=== PATIENT | male | born 1975 ===

== ENCOUNTER 2023-07-31 11:49 | Emergency (ER) | payer OTHER, SELFPAY ==
[2023-07-31 11:54] VITALS: BP 145/90; PULSE 78; RESP 16; O2SAT 96; BMI 28.2
[2023-07-31] MEDS: ONDANSETRON PF 4 MG/2 ML VIAL IV (12:13)
[2023-07-31] MEDS: MORPHINE SULFATE 4 MG/ML VIAL IV (12:13)
--- NOTE | 2023-07-31 12:16 | XR_ITS ---
The [address] [address] Patient Name: ALEJANDRO GREENFIELD MRN: [id number] date: 1975 Sex: M Assigned Patient Location: ER Current Patient Location: ER Accession/Order Number: [id number] Exam Date: 07/31/2023 12:20 Report Date: 07/31/2023 12:51 At the request of: DUSTIN PARISH Procedure: XR chest 1V EXAM: XR chest 1V HISTORY: Right lateral lower rib pain, no injury COMPARISON: None. TECHNIQUE: AP view of the chest. FINDINGS: The cardiomediastinal silhouette is normal. The lungs are clear. There is no pneumothorax. No pleural effusion is noted. The osseous structures are intact. XR/XR chest 1V IMPRESSION: No acute cardiopulmonary process. Electronically authenticated by: LAMAR SINGH Date: 07/31/2023 12:51
--- NOTE | 2023-07-31 12:18 | ED_ITS ---
HPI - General Adult General Chief complaint: Abdominal Pain Stated complaint: ABDOMINAL AND LOWER BACK PAIN Time Seen by Provider: 07/31/23 12:16 Source: patient Mode of arrival: walk-in Limitations: no limitations History of Present Illness HPI narrative: 47-year-old male presents for pain in his right anterior lateral rib region that has had for 4 days. He did not fall and had no direct trauma but he was lifting a heavy item before it started. He has a history of kidney stones but does not feel like a kidney stone and he has had a cholecystectomy. No fever or cough or complaints of shortness of breath. No dysuria or hematuria. He is also worried about a kidney infection. Related Data Previous Rx's Medication Instructions Recorded cyclobenzaprine 10 mg tablet 10 mg PO TID PRN muscle spasm #20 07/31/23 tabs ibuprofen 800 mg tablet 800 mg PO Q8H PRN pain #20 tabs 07/31/23 Allergies Allergy/AdvReac Type Severity Reaction Status Date / Time No Known Drug Allergies Allergy Verified 07/31/23 11:59 Review of Systems ROS Narrative A ten point review of systems is negative except as noted above. PFSH PFSH Social History Smoking status: Heavy tobacco smoker Exam Narrative Exam Narrative: Nurses note and vital signs reviewed and patient is not hypoxic. General: The patient appears well and in no apparent distress. Patient is resting comfortably on cart. Skin: Warm, dry, no pallor noted. There is no rash noted. Head: Normocephalic, atraumatic Eye: Normal conjunctiva, no drainage Ears, Nose, Mouth, and Throat: oral mucosa is moist. Nares patent. Cardiovascular: Regular Rate and Rhythm Respiratory: Patient is in no distress, no accessory muscle use, lungs are clear to auscultation, no wheezing, rales or rhonchi Back: non-tender, no CVA tenderness bilaterally to percussion. No bruise or rash in either flank area. GI: Minimal tenderness to palpation in the right lateral area below the ribs, no masses appreciated. No rebound, guarding, or rigidity noted. Musculoskeletal: The patient has no evidence of calf tenderness, no pitting edema, symmetrical pulses noted bilaterally Neurological: A&O, normal speech Psychiatric: Cooperative Constitutional Vital Signs, click to edit/add: Last Vital Signs Pulse 78 07/31/23 11:54 Resp 16 07/31/23 11:54 BP 145/90 H 07/31/23 11:54 Pulse Ox 96 07/31/23 11:54 O2 Del Method Room Air 07/31/23 11:54 Course Vital Signs Vital signs: Vital Signs Pulse Rate 78 07/31/23 11:54 Respiratory Rate 16 07/31/23 11:54 Blood Pressure 145/90 H 07/31/23 11:54 Pulse Oximetry 96 07/31/23 11:54 Oxygen Delivery Method Room Air 07/31/23 11:54 Pulse Rate 78 07/31/23 11:54 Respiratory Rate 16 07/31/23 11:54 Blood Pressure 145/90 H 07/31/23 11:54 Pulse Oximetry 96 07/31/23 11:54 Oxygen Delivery Method Room Air 07/31/23 11:54 Medical Decision Making MDM Narrative Medical decision making narrative: CAT scan shows no kidney stone or any other findings. He has trace amount of blood in his urine and he states it has been like that since he was a young boy. No evidence of UTI. He will be treated symptomatically for muscle pain. Treatment diagnosis and follow-up were discussed with the patient. Differential Diagnosis Differential Diagnosis: Kidney stone, UTI, pyelonephritis, muscle strain Lab Data Lab results reviewed: Yes I reviewed the patient's lab results Labs: Lab Results 07/31/23 Range/Units 12:10 WBC 7.7 (4.0-11.0) 10^3/uL RBC 4.83 (4.70-6.10) 10^6/uL Hgb 15.2 (14.0-18.0) g/dL Hct 43.8 (42.0-54.0) % MCV 90.7 (80.0-94.0) fL MCH 31.5 (25.9-34.0) pg MCHC 34.7 (29.9-35.2) g/dL RDW 12.3 (11.0-15.0) % Plt Count 306 (150-450) 10^3/uL MPV 10.3 (9.5-13.5) fL Neut % (Auto) 46.7 (43.0-75.0) % Lymph % (Auto) 42.2 (20.5-60.0) % [place] % (Auto) 7.3 (1.7-12.0) % Eos % (Auto) 2.6 (0.9-7.0) % Baso % (Auto) 0.9 (0.2-2.0) % Neut # (Auto) 3.6 (1.4-6.5) 10^3/uL Lymph # (Auto) 3.2 (1.2-3.8) 10^3/uL [place] # (Auto) 0.6 (0.3-0.8) 10^3/uL Eos # (Auto) 0.2 (0.0-0.7) 10^3/uL Baso # (Auto) 0.1 (0.0-0.1) 10^3/uL Abs Immat Gran (auto) 0.02 (0.00-0.03) 10^3/uL Imm/Tot Granulo (auto) 0.3 (0.0-0.5) % Sodium 140 (136-145) mmol/L Potassium 3.8 (3.5-5.1) mmol/L Chloride 106 (98-107) mmol/L Carbon Dioxide 25.7 (21.0-32.0) mmol/L Anion Gap 12.1 BUN 10.0 (7.0-18.0) mg/dL Creatinine 0.75 (0.70-1.30) mg/dL Est GFR ( Amer) >60 (>=60) Est GFR (Non-Af Amer) >60 (>=60) BUN/Creatinine Ratio 13.3 Glucose 99 (74-106) mg/dL Calcium 8.9 (8.5-10.1) mg/dL Urine Color Lt. yellow (YELLOW) Urine Clarity Clear (CLEAR) Urine pH 7.5 (5.0-9.0) Ur Specific [place] 1.010 (1.005-1.025) Urine Protein Negative (NEG/TRACE) mg/dL Urine Glucose (UA) Negative (NEGATIVE) mg/dL Urine Ketones Negative (NEGATIVE) mg/dL Urine Occult Blood Small A (NEGATIVE) Urine Nitrite Negative (NEGATIVE) Urine Bilirubin Negative (NEGATIVE) Urine Urobilinogen 0.2 (0.2-1.0) EU/dL Ur Leukocyte Esterase Negative (NEGATIVE) Urine RBC 2-5 A (0-2) #/HPF Urine WBC None seen (NONE SEEN) #/HPF Ur Squamous Epith Cells Rare (NONE/RARE) #/LPF Urine Crystals None seen (None Seen) #/HPF Urine Bacteria None seen (NONE SEEN) #/HPF Urine Casts None seen (NONE SEEN) #/LPF Urine Mucus None seen (NONE SEEN) Ur Culture Indicated? No Imaging Data CT scan - abdomen: Radiologist's impression: ITS Impressions Chest X-Ray 07/31/23 12:16 IMPRESSION: No acute cardiopulmonary process. Electronically authenticated by: LAMAR SINGH Date: 07/31/2023 12:51 Abdomen/Pelvis CT 07/31/23 12:54 IMPRESSION: No renal stone. No acute abnormality. Electronically authenticated by: JUAN GRAFF Date: 07/31/2023 13:38 Discharge Plan Discharge Chief Complaint: Abdominal Pain Clinical Impression: Flank pain Patient Disposition: Home, Self-Care Time of Disposition Decision: 13:48 Condition: Good Mode of Transportation: Private Vehicle Prescriptions / Home Meds: New cyclobenzaprine 10 mg tablet 10 mg PO TID PRN (Reason: muscle spasm) Qty: 20 0RF ibuprofen 800 mg tablet 800 mg PO Q8H PRN (Reason: pain) Qty: 20 0RF Stand Alone Forms: Portal Instructions Referrals: Physician,Non-Staff, MD [Primary Care Provider] - 1 week
[2023-07-31 12:32] LABS: Basophils Absolute Auto 0.1 10^3/uL (0.0-0.1); Basophils Percent Auto 0.9 % (0.2-2.0); Eosinophils Absolute Auto 0.2 10^3/uL (0.0-0.7); Eosinophils Percent Auto 2.6 % (0.9-7.0); Hematocrit 43.8 % (42.0-54.0); Hemoglobin 15.2 g/dL (14.0-18.0); Immature Granulocytes Abs Auto 0.02 10^3/uL (0.00-0.03); Immature Granulocytes Pct Auto 0.3 % (0.0-0.5); Lymphocytes Absolute Auto 3.2 10^3/uL (1.2-3.8); Lymphocytes Percent Auto 42.2 % (20.5-60.0); Mean Corpuscular HGB Conc 34.7 g/dL (29.9-35.2); Mean Corpuscular Hemoglobin 31.5 pg (25.9-34.0); Mean Corpuscular Volume 90.7 fL (80.0-94.0); Mean Platelet Volume 10.3 fL (9.5-13.5); Monocytes Absolute Auto 0.6 10^3/uL (0.3-0.8); Monocytes Percent Auto 7.3 % (1.7-12.0); Neutrophils Absolute Auto 3.6 10^3/uL (1.4-6.5); Neutrophils Percent Auto 46.7 % (43.0-75.0); Platelet Count 306 10^3/uL (150-450); Red Blood Count 4.83 10^6/uL (4.70-6.10); Red Cell Distribution Width 12.3 % (11.0-15.0); White Blood Count 7.7 10^3/uL (4.0-11.0)
[2023-07-31 12:35] LABS: Bilirubin Urine NEGATIVE (NEGATIVE); Blood Urine SMALL (NEGATIVE); Clarity Urine CLEAR (CLEAR); Color Urine LT. YELLOW (YELLOW); Glucose Urine UA NEGATIVE (NEGATIVE); Ketones Urine NEGATIVE (NEGATIVE); Leukocyte Esterase Urine NEGATIVE (NEGATIVE); Nitrite Urine NEGATIVE (NEGATIVE); Protein Urine NEGATIVE (NEG/TRACE); Urobilinogen Urine 0.2 EU/dL (0.2-1.0); pH Urine 7.5 (5.0-9.0)
[2023-07-31 12:37] LABS: Urine Microscopic Indicated YES
[2023-07-31 12:43] LABS: Anion Gap 12.1; BUN Creatinine Ratio 13.3; Calcium 8.9 mg/dL (8.5-10.1); Carbon Dioxide 25.7 mmol/L (21.0-32.0); Chloride 106 mmol/L (98-107); Estimated GFR (African America >60 (>=60); Estimated GFR (Non-African Ame >60 (>=60); Glucose 99 mg/dL (74-106); Potassium 3.8 mmol/L (3.5-5.1); Sodium 140 mmol/L (136-145)
[2023-07-31 12:47] LABS: Bacteria Urine NONE SEEN #/HPF (NONE SEEN); Cast Seen? NONE SEEN #/LPF (NONE SEEN); Crystals Seen? None Seen #/HPF (None Seen); Mucus Urine NONE SEEN (NONE SEEN); Squamous Epithelial Cell Urine RARE #/LPF (NONE/RARE); Urine Culture Indicated NO; WBC Urine NONE SEEN #/HPF (NONE SEEN)
--- NOTE | 2023-07-31 12:54 | CT_ITS ---
The [address] [address] Patient Name: ALEJANDRO GREENFIELD MRN: [id number] date: 1975 Sex: M Assigned Patient Location: ER Current Patient Location: ER Accession/Order Number: [id number] Exam Date: 07/31/2023 13:15 Report Date: 07/31/2023 13:38 At the request of: DUSTIN PARISH Procedure: CT abdomen pelvis wo con EXAM: CT abdomen pelvis wo con HISTORY: Right flank pain, rule out stone COMPARISON: 12/20/2010 TECHNIQUE: Axial CT imaging was performed through the abdomen and pelvis without intravenous contrast. Multiplanar reformats were performed. Dose reduction techniques were achieved by using automated exposure control and/or adjustment of mA and/or kV according to patient size and/or use of iterative reconstruction technique. FINDINGS: Lung bases: Lung bases are clear. No pleural effusion. GI upper: Unremarkable. Liver: Normal size and contour. Gallbladder: Cholecystectomy. Biliary system: No intra or extrahepatic biliary ductal dilatation. Spleen: Normal size. Pancreas: Unremarkable. Adrenal glands: Normal adrenal glands. Kidneys/ureters: Normal contours. No hydronephrosis. No nephrolithiasis or ureterolithiasis. Vessels: No aneurysm. Lymph Nodes: No lymphadenopathy. Small bowel: No wall thickening or dilatation. Colon: No wall thickening or dilatation. Appendix: No findings of appendicitis. Peritoneal cavity: No free fluid or pneumoperitoneum. Lower : Prostate is unremarkable. Unremarkable urinary bladder. Bones: No acute bony abnormality. Soft tissues: No acute finding. Additional findings: None. CT/CT abdomen pelvis wo con IMPRESSION: No renal stone. No acute abnormality. Electronically authenticated by: JUAN GRAFF Date: 07/31/2023 13:38
[2023-07-31 13:56] VITALS: BP 138/88; PULSE 86; RESP 18; O2SAT 98
== END 2023-07-31 14:04 | disposition home or self-care (01) ==
PROVIDERS: Emergency Provider Emergency Medicine
DX: R10.9 Unspecified abdominal pain (principal); Z87.442 Personal history of urinary calculi; Z90.49 Acquired absence of other specified parts of digestive tract; F17.210 Nicotine dependence, cigarettes, uncomplicated
CPT/HCPCS: 36415; 71045; 74176; 80048; 81001; 85025; 96374; 96375; 99285; J2270; J2405